=== PATIENT | male | born 1990 | race Hispanic/Latino ===

== ENCOUNTER 2017-03-20 18:49 | Emergency (ER) | payer OTHER ==
[2017-03-20 18:49] VITALS: BMI 37.6
[2017-03-20 19:12] VITALS: BP 140/71; PULSE 69; RESP 17; TEMP 98; O2SAT 96
[2017-03-20] MEDS ORDERED: DiphenhydrAMINE 50 mg/ml Inj IVP STA (19:39)
[2017-03-20] MEDS ORDERED: Sodium Chloride 0.9% 1,000 ML IV STA (19:39)
--- NOTE | 2017-03-20 20:14 | ED PDOC ---
HPI: Headache Time Seen by Provider: 03/20/17 19:14 Chief Complaint (Nursing): Headache Chief Complaint (Provider): Headache History Per: Patient History/Exam Limitations: no limitations Onset/Duration Of Symptoms: Days (5x) Current Symptoms Are (Timing): Still Present Severity: Moderate Associated Symptoms: Photophobia, Blurred Vision, Nausea. denies: Vomiting, Other (fever) Additional Complaint(s): 27 year old male with no pertinent medical history presents to the ED with complaints of a headache associated with nausea, photophobia, and phonophobia that started 5x days ago. He reports that he has his typical migraine symptoms with more blurry vision. He reports that his migraine medication today with no relief. He denies having fevers and vomiting. Patient's last MRI was in October (4x months ago). Patient has an aneurism which is stable. PMD: not provided Past Medical History Reviewed: Historical Data, Nursing Documentation, Vital Signs Vital Signs: Last Vital Signs Temp 98 F 03/20/17 19:09 Pulse 69 03/20/17 19:09 Resp 17 03/20/17 19:09 BP 140/71 03/20/17 19:09 Pulse Ox 96 03/20/17 19:09 - Medical History PMH: Anxiety, Depression, Migraine, Post Traumatic Stress Disorder Denies: Chronic Kidney Disease - Surgical History Surgical History: No Surg Hx - Family History Family History: States: No Known Family Hx - Social History Alcohol: None Drugs: Denies - Immunization History Hx Tetanus Toxoid Vaccination: No Hx Influenza Vaccination: No Hx Pneumococcal Vaccination: No - Home Medications Home Medications: Ambulatory Orders Medication Instructions Recorded Azithromycin [Zithromax] 250 mg PO DAILY #6 cap 08/29/15 Naproxen [Naprosyn] 500 mg PO Q12H #20 tab 08/29/15 Metoclopramide [Reglan] 10 mg PO Q6 PRN #20 tab 12/06/15 Naproxen [Naprosyn] 500 mg PO BID #20 tab 12/06/15 - Allergies Allergies/Adverse Reactions: Allergies Allergy/AdvReac Type Severity Reaction Status Date / Time Sulfa (Sulfonamide Allergy RASH Verified 03/20/17 19:08 Antibiotics) divalproex sodium AdvReac VOMITING Verified 03/20/17 19:08 [From Depakote] Review of Systems ROS Statement: Except As Marked, All Systems Reviewed And Found Negative Constitutional: Negative for: Fever Gastrointestinal: Positive for: Nausea. Negative for: Vomiting Neurological: Positive for: Headache, Other (photophobia, phonophobia) Physical Exam - Reviewed Nursing Documentation Reviewed: Yes Vital Signs Reviewed: Yes - Physical Exam Appears: Positive for: Well, Non-toxic, No Acute Distress Head Exam: Positive for: ATRAUMATIC, NORMOCEPHALIC Skin: Positive for: Normal Color, Warm, Dry Eye Exam: Positive for: Normal appearance, EOMI, PERRL Neck: Positive for: Normal, Painless ROM, Supple Cardiovascular/Chest: Positive for: Regular Rate, Rhythm Respiratory: Positive for: Normal Breath Sounds. Negative for: Respiratory Distress Extremity: Positive for: Normal ROM Neurologic/Psych: Positive for: Alert, Oriented (3x) - ECG O2 Sat by Pulse Oximetry: 96 (RA) Pulse Ox Interpretation: Normal - Progress ED Course And Treament: Pt sleeping comfortably. States he feels better, agrees with discharge home. Re-evaluation Time: 23:20 Condition: Improved Medical Decision Making Medical Decision Makin:14 Initial impression: 27 year old male with a migraine Initial plan: * CT head w/o contrast * benadryl 25mg IVP * IV NS 1,000ml IV 1,000mls/hr * phenergan inj 25mg IVP * reevaluation Scribe Attestation: Documented by Lakeisha Sweeney, acting as a scribe for Karen Childs MD. Provider Scribe Attestation: All medical record entries made by the Scribe were at my direction and personally dictated by me. I have reviewed the chart and agree that the record accurately reflects my personal performance of the history, physical exam, medical decision making, and the department course for this patient. I have also personally directed, reviewed, and agree with the discharge instructions and disposition. Disposition - Clinical Impression Clinical Impression: Migraine - Patient ED Disposition Is Patient to be Admitted: No - Disposition Disposition: Routine/Home Disposition Time: 23:21 Condition: IMPROVED Additional Instructions: FOLLOW-UP WITH YOUR NEUROLOGIST WITHIN 2 DAYS FOR REEVALUATION. Instructions: Migraine Headache (ED) Forms: [facility] [facility] (Mozambican)
--- NOTE | 2017-03-21 10:14 | CT ---
PROCEDURE: CT HEAD WITHOUT CONTRAST. HISTORY: Headache COMPARISON: 11/01/2016. TECHNIQUE: Axial computed tomography images were obtained through the head/brain without intravenous contrast. Radiation dose: Total exam DLP = 783.29 mGy-cm. This CT exam was performed using one or more of the following dose reduction techniques: Automated exposure control, adjustment of the mA and/or kV according to patient size, and/or use of iterative reconstruction technique. FINDINGS: HEMORRHAGE: No intracranial hemorrhage. BRAIN: Hernandez-white matter differentiation is preserved. There is no mass, mass effect or abnormal extra-axial fluid collection. VENTRICLES: The ventricles are normal in size, shape and configuration. CALVARIUM: There is no calvarial fracture or extracranial soft tissue swelling. PARANASAL SINUSES: Predominantly clear. MASTOID AIR CELLS: Predominantly clear. OTHER FINDINGS: None. IMPRESSION: No acute intracranial abnormality. A preliminary report was provided by [facility].
== END 2017-03-20 23:27 | disposition home or self-care (01) ==
LOC: H.ER 18:49
DX: G43.909 Migraine, unspecified, not intractable, without status migrainosus (principal); Z86.59 Personal history of other mental and behavioral disorders

== ENCOUNTER 2017-11-05 21:16 | Emergency (ER) | payer OTHER ==
[2017-11-05 21:17] VITALS: BMI 37.6
[2017-11-05 21:23] VITALS: BP 147/91; PULSE 63; RESP 16; TEMP 97.6; O2SAT 97
--- NOTE | 2017-11-05 21:34 | ED PDOC ---
HPI: Male Pain Time Seen by Provider: 11/05/17 21:24 Chief Complaint (Nursing): Male Genitourinary Chief Complaint (Provider): testicular pain, right History Per: Patient History/Exam Limitations: no limitations Onset/Duration Of Symptoms: Days (3), Waxing/Waning Current Symptoms Are (Timing): Still Present Quality Of Discomfort: "Pain" Additional History Per: Patient Additional Complaint(s): 27 y/o male presents with intermittent right testicular pain x 3 days. Denies fever, nausea/vomiting, abdominal/pelvic pain, penile pain/discharge, dysuria, hematuria. Patient is unsure if the testicle is swollen because he is afraid to look. Past Medical History Reviewed: Historical Data, Nursing Documentation, Vital Signs Vital Signs: Last Vital Signs Temp 97.6 F 11/05/17 21:21 Pulse 63 11/05/17 21:21 Resp 16 11/05/17 21:21 BP 147/91 H 11/05/17 21:21 Pulse Ox 97 11/05/17 21:21 - Medical History PMH: Anxiety, Depression, Migraine, Post Traumatic Stress Disorder Denies: Chronic Kidney Disease - Surgical History Surgical History: No Surg Hx - Family History Family History: States: Unknown Family Hx - Immunization History Hx Tetanus Toxoid Vaccination: No Hx Influenza Vaccination: No Hx Pneumococcal Vaccination: No - Home Medications Home Medications: Ambulatory Orders Medication Instructions Recorded Azithromycin [Zithromax] 250 mg PO DAILY #6 cap 08/29/15 Naproxen [Naprosyn] 500 mg PO Q12H #20 tab 08/29/15 Metoclopramide [Reglan] 10 mg PO Q6 PRN #20 tab 12/06/15 Naproxen [Naprosyn] 500 mg PO BID #20 tab 12/06/15 Naproxen [Naprosyn] 500 mg PO Q12 PRN #20 tablet 11/05/17 - Allergies Allergies/Adverse Reactions: Allergies Allergy/AdvReac Type Severity Reaction Status Date / Time Sulfa (Sulfonamide Allergy RASH Verified 03/20/17 19:08 Antibiotics) divalproex sodium AdvReac VOMITING Verified 03/20/17 19:08 [From Depakote] Review of Systems ROS Statement: Except As Marked, All Systems Reviewed And Found Negative Genitourinary Male: Positive for: Scrotal Pain (right) Physical Exam - Reviewed Nursing Documentation Reviewed: Yes Vital Signs Reviewed: Yes - Physical Exam Appears: Positive for: Well, Non-toxic, No Acute Distress Head Exam: Positive for: ATRAUMATIC, NORMAL INSPECTION, NORMOCEPHALIC Skin: Positive for: Normal Color Eye Exam: Positive for: Normal appearance ENT: Positive for: Normal ENT Inspection Cardiovascular/Chest: Positive for: Regular Rate, Rhythm Respiratory: Positive for: Normal Breath Sounds Gastrointestinal/Abdominal: Positive for: Normal Exam Male Genital Exam: Positive for: testicular tenderness (R) (+ cremasteric reflex b/l), 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 Negative for: inguinal tenderness, lesions, urethral discharge Back: Positive for: Normal Inspection Extremity: Positive for: Normal ROM Neurologic/Psych: Positive for: Alert, Oriented - Laboratory Results Result Diagrams: 11/05/17 22:15 11/05/17 22:15 - ECG O2 Sat by Pulse Oximetry: 97 - Progress ED Course And Treament: labs, urine, testes u/s EXAM: US Scrotum EXAM DATE/TIME: 11/05/2017 9:42 PM CLINICAL HISTORY: 27 years old, male; Pain; Scrotum pain; Additional info: Right testicular pain TECHNIQUE: Real-time ultrasound of the scrotum with color Doppler and image documentation. COMPARISON: No relevant prior studies available. FINDINGS: The testicles are symmetric measuring 4.5 x 2 x 2.8 cm on the right and measuring 4.5 x 2.1 x 2.5 cm on the left. The testicles are homogeneous bilaterally. Color flow and arterial waveforms are demonstrated bilaterally (no testicular torsion). The epidiymis are normal bilaterally. There are small bilateral varicoceles. IMPRESSION: No acute findings. Small bilateral varicoceles. Patient educated on findings, aware of elevated LFTs, has history of NAFLD for which he will follow up with his PMD. Rx Naproxen given. Advised urology follow up. Return precautions given. Disposition - Clinical Impression Clinical Impression: Testicular pain - Patient ED Disposition Is Patient to be Admitted: No Counseled Patient/Family Regarding: Studies Performed, Diagnosis, Need For Followup, Rx Given - Disposition Referrals: Ryan Griffiths MD [Medical Doctor] - Disposition: Routine/Home Disposition Time: 23:40 Condition: GOOD Prescriptions: Naproxen [Naprosyn] 500 mg PO Q12 PRN #20 tablet PRN Reason: Pain, Moderate (4-7) Instructions: Testicle Pain (ED)
[2017-11-05 22:23] LABS: URINE BILIRUBIN NEGATIVE (NEGATIVE); URINE BLOOD NEGATIVE (NEGATIVE); URINE CLARITY SLIGHTY-CLOUDY (Clear); URINE COLOR YELLOW (YELLOW); URINE GLUCOSE (UA) NEG (Normal); URINE LEUKOCYTE ESTERASE NEG Leu/uL (Negative); URINE NITRATE NEGATIVE (NEGATIVE); URINE PROTEIN NEGATIVE (NEGATIVE); URINE UROBILINOGEN 0.2-1.0 mg/dL (0.2-1.0)
[2017-11-05 22:25] LABS: BASO # 0.1 K/uL (0.0-0.2); EOS # 0.3 K/uL (0.0-0.7); EOS % 2.9 % (0.0-4.0); HEMOGLOBIN 14.5 g/dL (12.0-18.0); LYMPH # 4.3 K/uL (1.0-4.3); LYMPH % 37.6 % (20.0-40.0); MEAN CELL VOLUME 82.3 fl (80.0-94.0); MEAN CORPUSCULAR HEMOGLOBIN 27.1 pg (27.0-31.0); MEAN CORPUSCULAR HGB CONC 32.9 g/dL (33.0-37.0); MEAN PLATELET VOLUME 8.5 fl (7.2-11.7); MONO % 8.5 % (0.0-10.0); NEUT # 5.7 K/uL (1.8-7.0); NRBC % 0.1 % (0.0-0.0); RBC 5.35 Mil/uL (4.40-5.90); RED CELL DISTRIBUTION WIDTH 13.5 % (11.5-14.5); WHITE BLOOD COUNT 11.4 K/uL (4.8-10.8)
[2017-11-05 22:33] LABS: ALB/GLOB RATIO 1.2 (1.0-2.1); ALBUMIN 4.1 g/dL (3.5-5.0); ALT/SGPT 204 U/L (21-72); AST/SGOT 92 U/L (17-59); BLOOD UREA NITROGEN 7 mg/dl (9-20); CALCIUM 9.1 mg/dL (8.4-10.2); GFR AFRICAN-AMERICAN > 60; GFR NON-AFRICAN AMERICAN > 60
--- NOTE | 2017-11-05 23:11 | US ---
EXAM: US Scrotum EXAM DATE/TIME: 11/05/2017 9:42 PM CLINICAL HISTORY: 27 years old, male; Pain; Scrotum pain; Additional info: Right testicular pain TECHNIQUE: Real-time ultrasound of the scrotum with color Doppler and image documentation. COMPARISON: No relevant prior studies available. FINDINGS: The testicles are symmetric measuring 4.5 x 2 x 2.8 cm on the right and measuring 4.5 x 2.1 x 2.5 cm on the left. The testicles are homogeneous bilaterally. Color flow and arterial waveforms are demonstrated bilaterally (no testicular torsion). The epidiymis are normal bilaterally. There are small bilateral varicoceles. IMPRESSION: No acute findings. Small bilateral varicoceles.
== END 2017-11-06 00:06 | disposition home or self-care (01) ==
LOC: H.ER 21:16
DX: N50.811 Right testicular pain (principal); N50.82 Scrotal pain; R94.5 Abnormal results of liver function studies; F32.9 Major depressive disorder, single episode, unspecified; F43.10 Post-traumatic stress disorder, unspecified
CPT/HCPCS: 80053; 81003; 85025; 87086; 87491; 87591; 93975; 96374; 99281; J1885

== ENCOUNTER 2018-06-29 13:18 | Emergency (ER) | payer OTHER ==
[2018-06-29 13:18] VITALS: BMI 37.6
[2018-06-29 14:06] VITALS: BP 131/85; PULSE 73; RESP 18; TEMP 97; O2SAT 96
[2018-06-29] MEDS ORDERED: Sodium Chloride 0.9% 1,000 ML IV STA (14:40)
--- NOTE | 2018-06-29 14:49 | ED PDOC ---
HPI: Headache Time Seen by Provider: 06/29/18 14:28 Chief Complaint (Nursing): Headache Chief Complaint (Provider): Headache History Per: Patient History/Exam Limitations: no limitations Onset/Duration Of Symptoms: Days (x7) Current Symptoms Are (Timing): Still Present Associated Symptoms: Photophobia, Nausea Additional Complaint(s): 28 y/o male with a PMHx of migraine headaches and PTSD presents to the ED complaining of a headache associated with mild nausea, photophobia and hyperacusis, onset one week. Patient states symptoms feel like a migraine. Denies fever, trauma, neck stiffness and fever. PMD: None Provided Past Medical History Reviewed: Historical Data, Nursing Documentation, Vital Signs Vital Signs: Last Vital Signs Temp 97 F L 06/29/18 14:03 Pulse 73 06/29/18 14:03 Resp 18 06/29/18 14:03 BP 131/85 06/29/18 14:03 Pulse Ox 96 06/29/18 14:03 - Medical History PMH: Anxiety, Depression, Migraine, Post Traumatic Stress Disorder Denies: Chronic Kidney Disease - Surgical History Surgical History: No Surg Hx - Family History Family History: States: Unknown Family Hx - Immunization History Hx Tetanus Toxoid Vaccination: No Hx Influenza Vaccination: No Hx Pneumococcal Vaccination: No - Home Medications Home Medications: Ambulatory Orders Medication Instructions Recorded Azithromycin [Zithromax] 250 mg PO DAILY #6 cap 08/29/15 Naproxen [Naprosyn] 500 mg PO Q12H #20 tab 08/29/15 Metoclopramide [Reglan] 10 mg PO Q6 PRN #20 tab 12/06/15 Naproxen [Naprosyn] 500 mg PO BID #20 tab 12/06/15 Naproxen [Naprosyn] 500 mg PO Q12 PRN #20 tablet 11/05/17 - Allergies Allergies/Adverse Reactions: Allergies Allergy/AdvReac Type Severity Reaction Status Date / Time Sulfa (Sulfonamide Allergy RASH Verified 06/29/18 14:03 Antibiotics) divalproex sodium AdvReac VOMITING Verified 06/29/18 14:03 [From Depakote] Review of Systems ROS Statement: Except As Marked, All Systems Reviewed And Found Negative Constitutional: Negative for: Fever Gastrointestinal: Positive for: Nausea Musculoskeletal: Negative for: Neck Pain Neurological: Positive for: Headache Physical Exam - Reviewed Nursing Documentation Reviewed: Yes Vital Signs Reviewed: Yes - Physical Exam Appears: Positive for: No Acute Distress Skin: Positive for: Normal Color, Warm, Dry Eye Exam: Positive for: Normal appearance, EOMI, PERRL Neck: Positive for: Normal, Painless ROM, Supple Cardiovascular/Chest: Positive for: Regular Rate, Rhythm. Negative for: Murmur Respiratory: Positive for: Normal Breath Sounds. Negative for: Respiratory Distress Gastrointestinal/Abdominal: Positive for: Normal Exam, Soft. Negative for: Tenderness Extremity: Positive for: Normal ROM Neurologic/Psych: Positive for: Alert, Oriented (x3). Negative for: Motor/Se nsory Deficits - Laboratory Results Result Diagrams: 06/29/18 15:06 06/29/18 15:06 - ECG O2 Sat by Pulse Oximetry: 96 (RA) Pulse Ox Interpretation: Normal - Progress Re-evaluation Time: 17:43 Condition: Improved Medical Decision Making Medical Decision Making: Time: 1445 Plan: -- CMP -- CBC with differentials -- Sodium Chloride IV 200 mls/hr -- Reglan 10 mg IVP -- Toradol 30 mg IVP Scribe Attestation: Documented by Merline Stanford acting as a scribe for Praveen Waggoner MD. Provider Scribe Attestation: All medical record entries made by the Scribe were at my direction and personally dictated by me. I have reviewed the chart and agree that the record accurately reflects my personal performance of the history, physical exam, medical decision making, and the department course for this patient. I have also personally directed, reviewed, and agree with the discharge instructions and dis position. Disposition - Clinical Impression Clinical Impression: Migraine headache - Patient ED Disposition Is Patient to be Admitted: No Counseled Patient/Family Regarding: Studies Performed, Diagnosis, Need For Followup - Disposition Referrals: Mell Sims MD [Medical Doctor] - Disposition: Routine/Home Disposition Time: 17:44 Condition: FAIR Instructions: Migraine Headache (DC) Forms: [facility] (Portuguese), [facility] ED School/Work Excuse
[2018-06-29 15:13] LABS: BASO # 0.1 K/uL (0.0-0.2); EOS # 0.3 K/uL (0.0-0.7); EOS % 3.3 % (0.0-4.0); HEMOGLOBIN 16.1 g/dL (12.0-18.0); LYMPH # 3.6 K/uL (1.0-4.3); LYMPH % 36.6 % (20.0-40.0); MEAN CELL VOLUME 81.1 fl (80.0-94.0); MEAN CORPUSCULAR HEMOGLOBIN 28.1 pg (27.0-31.0); MEAN CORPUSCULAR HGB CONC 34.7 g/dL (33.0-37.0); MEAN PLATELET VOLUME 8.3 fl (7.2-11.7); MONO # 0.7 K/uL (0.0-0.8); MONO % 7.4 % (0.0-10.0); NEUT # 5.1 K/uL (1.8-7.0); NEUT % 51.7 % (50.0-75.0); RBC 5.71 Mil/uL (4.40-5.90); RED CELL DISTRIBUTION WIDTH 13.3 % (11.5-14.5); WHITE BLOOD COUNT 9.8 K/uL (4.8-10.8)
[2018-06-29 15:26] LABS: ALB/GLOB RATIO 1.1 (1.0-2.1); ALBUMIN 4.5 g/dL (3.5-5.0); ALT/SGPT 197 U/L (21-72); AST/SGOT 125 U/L (17-59); BLOOD UREA NITROGEN 14 mg/dl (9-20); CALCIUM 10.3 mg/dL (8.4-10.2); GFR NON-AFRICAN AMERICAN > 60
== END 2018-06-29 18:24 | disposition home or self-care (01) ==
LOC: H.ER 13:18
DX: G43.909 Migraine, unspecified, not intractable, without status migrainosus (principal); F43.10 Post-traumatic stress disorder, unspecified; F32.9 Major depressive disorder, single episode, unspecified
CPT/HCPCS: 80053; 85025; 96374; 96375; 99284; J1885; J2765; J7030

== ENCOUNTER 2018-07-07 15:35 | Emergency (ER) | payer OTHER ==
[2018-07-07 15:35] VITALS: BMI 37.6
[2018-07-07 15:50] VITALS: TEMP 98.5
[2018-07-07] MEDS ORDERED: Sodium Chloride 0.9% 1,000 ML IV STA (16:28)
--- NOTE | 2018-07-07 17:01 | ED PDOC ---
HPI: Headache Time Seen by Provider: 07/07/18 16:06 Chief Complaint (Nursing): Headache Chief Complaint (Provider): my migrane is back History Per: Patient History/Exam Limitations: no limitations Onset/Duration Of Symptoms: Days (2 weeks ), Intermittent Episodes Current Symptoms Are (Timing): Intermittent Episodes Severity: Moderate Quality: Tightness (helmet-like) Associated Symptoms: Photophobia. denies: Blurred Vision, Nausea, Vomiting, Extremity Weakness Additional History Per: Prior Records Additional Complaint(s): 28yo male hx migranes, PTSD, under care of psychiatrist and headache center takes propranolol, c/o headache ongoing intermittently for about 2 weeks, associated w nausea, photosensitivity and hyperacusis. Denies fever, neck pain, change vision or weakness. States had difficulty w work hence taken a few days off. Receives care at [facility] center in [facility], prior saw Dr Barraza for neuro but wishes to find new neurologist. [facility] has had MRA x3 over last few years. Past Medical History Reviewed: Historical Data, Nursing Documentation, Vital Signs Vital Signs: Last Vital Signs Temp 98.5 F 07/07/18 15:47 Pulse 69 07/07/18 15:47 Resp 18 07/07/18 15:47 BP 147/99 H 07/07/18 15:47 Pulse Ox 98 07/07/18 15:47 - Medical History PMH: Anxiety, Depression, Migraine, Post Traumatic Stress Disorder Denies: Chronic Kidney Disease - Family History Family History: States: Other Other Family History: blood clots and aneurysms he believes also hes adopted - Social History Current smoker - smoking cessation education provided: No Alcohol: None - Immunization History Hx Tetanus Toxoid Vaccination: No Hx Influenza Vaccination: No Hx Pneumococcal Vaccination: No - Home Medications Home Medications: Ambulatory Orders Medication Instructions Recorded Azithromycin [Zithromax] 250 mg PO DAILY #6 cap 08/29/15 Naproxen [Naprosyn] 500 mg PO Q12H #20 tab 08/29/15 Metoclopramide [Reglan] 10 mg PO Q6 PRN #20 tab 12/06/15 Naproxen [Naprosyn] 500 mg PO BID #20 tab 12/06/15 Naproxen [Naprosyn] 500 mg PO Q12 PRN #20 tablet 11/05/17 - Allergies Allergies/Adverse Reactions: Allergies Allergy/AdvReac Type Severity Reaction Status Date / Time Sulfa (Sulfonamide Allergy RASH Verified 07/07/18 15:46 Antibiotics) divalproex sodium AdvReac VOMITING Verified 07/07/18 15:46 [From Depakote] Review of Systems Constitutional: Negative for: Fever Cardiovascular: Negative for: Chest Pain Respiratory: Negative for: Shortness of Breath Gastrointestinal: Positive for: Nausea. Negative for: Abdominal Pain Genitourinary Male: Negative for: Dysuria Musculoskeletal: Negative for: Neck Pain, Arm Pain, Back Pain, Leg Pain Skin: Negative for: Rash, Lesions Neurological: Positive for: Headache. Negative for: Weakness, Numbness, Incoordination, Change in Speech, Confusion, Seizures, Altered Mental Status, Dizziness Psych: Positive for: Anxiety. Negative for: Suicidal ideation Physical Exam - Reviewed Nursing Documentation Reviewed: Yes Vital Signs Reviewed: Yes - Physical Exam Appears: Positive for: Well, Non-toxic, No Acute Distress Head Exam: Positive for: ATRAUMATIC, NORMAL INSPECTION, NORMOCEPHALIC Skin: Positive for: Normal Color, Warm, DRY Eye Exam: Positive for: EOMI, Normal appearance, PERRL ENT: Positive for: Normal ENT Inspection Neck: Positive for: Normal, Painless ROM Cardiovascular/Chest: Positive for: Regular Rate, Rhythm Respiratory: Positive for: CNT, Normal Breath Sounds Gastrointestinal/Abdominal: Positive for: Normal Exam, Soft Back: Positive for: Normal Inspection Extremity: Positive for: Normal ROM Neurologic/Psych: Positive for: Alert, Oriented, Mood/Affect (excellent insight), Cerebellar Tests (intact ), Other (memory recall grossly intact). Negative for: Motor/Sensory Deficits, Aphasia, Facial Droop - Laboratory Results Result Diagrams: 07/07/18 17:55 07/07/18 17:25 - ECG O2 Sat by Pulse Oximetry: 98 Medical Decision Making Medical Decision Making: prior imaging reviewed CT brain neg 2017, MRA brain R carotid infidibulum otherwise normal IVF toradol and reglan ordered, labs reviewed revealing no clinically concerning abnormalities Re-eval approx 645p pt revealed some improvement but wished for another analgesic hence magnesium sulfate ordered, allergic to depakote. Endorsed to Dr Solis 7pm pending re-eval and dispo. Disposition - Clinical Impression Clinical Impression: Migraine - Patient ED Disposition Is Patient to be Admitted: Transfer of Care - Disposition Referrals: Charli Fuller MD [Staff Provider] - Disposition: Transfer of Care Disposition Time: 19:00 Condition: IMPROVED Instructions: Migraine Headaches in Adults Forms: [facility] (Amharic), [facility] ED School/Work Excuse
[2018-07-07 17:32] LABS: BASO # 0.1 K/uL (0.0-0.2); BASO % 0.7 % (0.0-2.0); EOS # 0.2 K/uL (0.0-0.7); EOS % 1.9 % (0.0-4.0); HEMOGLOBIN 15.1 g/dL (12.0-18.0); LYMPH # 3.1 K/uL (1.0-4.3); LYMPH % 36.6 % (20.0-40.0); MEAN CELL VOLUME 81.2 fl (80.0-94.0); MEAN CORPUSCULAR HEMOGLOBIN 28.3 pg (27.0-31.0); MEAN CORPUSCULAR HGB CONC 34.8 g/dL (33.0-37.0); MEAN PLATELET VOLUME 8.8 fl (7.2-11.7); MONO # 0.6 K/uL (0.0-0.8); MONO % 7.2 % (0.0-10.0); NEUT # 4.5 K/uL (1.8-7.0); NEUT % 53.6 % (50.0-75.0); RBC 5.34 Mil/uL (4.40-5.90); RED CELL DISTRIBUTION WIDTH 13.2 % (11.5-14.5); WHITE BLOOD COUNT 8.4 K/uL (4.8-10.8)
[2018-07-07 18:01] LABS: ALB/GLOB RATIO 1.1 (1.0-2.1); ALBUMIN 3.9 g/dL (3.5-5.0); ALT/SGPT 225 U/L (21-72); AST/SGOT 167 U/L (17-59); BLOOD UREA NITROGEN 12 mg/dl (9-20); CALCIUM 9.2 mg/dL (8.4-10.2); GFR NON-AFRICAN AMERICAN > 60
[2018-07-07] MEDS ORDERED: Magnesium Sulfate 2 gm/50 ml 2 GM/50 ML BAG IV ONE (19:00)
--- NOTE | 2018-07-07 19:54 | ED PDOC ---
- Laboratory Results Result Diagrams: 07/07/18 17:55 07/07/18 17:25 - ECG O2 Sat by Pulse Oximetry: 98 Medical Decision Making Medical Decision Makin:00 Patient signed out to this provider from Dr. Colon. Pending reevaluation. 22:36 After Magnesium sulfate given to patient, patient reports his headache has resolved. Patient is stable for discharge and will follow up with his primary care provider with diagnosis of migraine. Condition improved. Scribe Attestation: Documented by Reymundo Nicolas acting as a scribe for Allen Solis MD. Provider Scribe Attestation: All medical record entries made by the Scribe were at my direction and pers onally dictated by me. I have reviewed the chart and agree that the record accurately reflects my personal performance of the history, physical exam, medical decision making, and the department course for this patient. I have also personally directed, reviewed, and agree with the discharge instructions and disposition. Disposition - Clinical Impression Clinical Impression: Migraine - POA Present On Arrival: None - Disposition Referrals: Charli Fuller MD [Staff Provider] - Disposition: Routine/Home Disposition Time: 22:37 Condition: IMPROVED Instructions: Migraine Headaches in Adults Forms: [employer] (Moldovan), [facility] ED School/Work Excuse
[2018-07-07] MEDS ORDERED: Magnesium Sulfate 2 gm/50 ml 2 GM/50 ML BAG ONE (21:08)
[2018-07-07 22:41] VITALS: BP 137/86; PULSE 80; RESP 16
[2018-07-08 01:12] VITALS: O2SAT 98
== END 2018-07-07 22:43 | disposition home or self-care (01) ==
LOC: H.ER 15:35
DX: G43.909 Migraine, unspecified, not intractable, without status migrainosus (principal); F43.10 Post-traumatic stress disorder, unspecified; Z86.59 Personal history of other mental and behavioral disorders
CPT/HCPCS: 80053; 83735; 85025; 96374; 99285; J1885; J2765; J7030